=== PATIENT | female | born 2000 | race African-American/Black ===

== ENCOUNTER 2019-05-10 22:05 | Inpatient (IN) | payer OTHER ==
--- NOTE | 2019-05-10 22:12 | ED ---
Psychiatric Complaint - HPI Summary HPI Summary: This patient is a 18 year old F presenting to [facility] with a chief complaint of SI since earlier today. Pt states her friends asked police for a wellness check for the pt. Pt states she has tried to kill herself by cutting herself in the past. She is not allergic to any medications. Pt does not have any surgical history. The patient rates the pain 0/10 in severity. Symptoms aggravated by nothing. Symptoms alleviated by nothing. Pt smokes and occasionally drinks, but does not use recreational drugs. - History Of Current Complaint Chief Complaint: EDMentalHealth Time Seen by Provider: 05/10/19 22:07 Hx Obtained From: Patient Onset/Duration: Sudden Onset, Lasting Hours - since earlier today, Still Present Timing: Constant Severity Initially: Mild Severity Currently: Mild Aggravating Factor(s): Nothing Alleviating Factor(s): Nothing Has Suicidal: Reports: Thoughts, Has Prior Attempt(s) - Allergies/Home Medications Allergies/Adverse Reactions: Allergies Allergy/AdvReac Type Severity Reaction Status Date / Time No Known Allergies Allergy Verified 05/10/19 22:25 Home Medications: Home Medications Escitalopram Oxalate [Lexapro 10 mg] 10 mg PO DAILY 05/10/19 [History Confirmed 05/10/19] PMH/Surg Hx/FS Hx/Imm Hx Previously Healthy: No Sensory History: Denies: Hx Vision Problem, Hx Deafness EENT History: Denies: Hx Deafness, Hx Auditory Problems - Surgical History Surgical History: None Infectious Disease History: No Infectious Disease History: Denies: Traveled Outside the [place] in Last 30 Days - Family History Known Family History: Positive: None - Social History Alcohol Use: Occasionally Hx Substance Use: No Hx Tobacco Use: Yes Review of Systems Negative: Fever Psychological: Other - positive - SI All Other Systems Reviewed And Are Negative: Yes Physical Exam - Summary Physical Exam Summary: General: Well-developed, Well-nourished thin FEMALE. No acute distress. Soft- spoken. HEENT: Normocephalic, Atraumatic. Eyes: Conjuctiva normal, PERRL. Ears: TMs within normal limits. Nares: (-) discharge, (-) erythema. Oropharynx: Clear, mucous membranes moist, (-) exudates. Neck: Soft, FROM, (-) lymphadenopathy, (-) thyromegaly, (-) JVD. Cardiovascular: Normal sinus rhythm, (-) murmur. Lungs: Clear to auscultation bilaterally (-) wheezes, (-) rales, (-) rhonchi. Abdomen: Soft, non-tender, non-distended, (-) organomegaly, normal bowel sounds. Back: (-) CVA tenderness Extremities: No edema. Skin: Warm, dry, (-) rash. Neuro: Alert and oriented x3, no focal deficits. Psychiatric: Mood normal, affect normal. Good eye contact Triage Information Reviewed: Yes Vital Signs On Initial Exam: Initial Vitals Temp Pulse Resp BP Pulse Ox 98.7 F 83 16 144/102 98 05/10/19 22:08 05/10/19 22:08 05/10/19 22:08 05/10/19 22:08 05/10/19 22:08 Vital Signs Reviewed: Yes Procedures - Sedation Patient Received Moderate/Deep Sedation with Procedure: No Diagnostics - Vital Signs Vital Signs Temp Pulse Resp BP Pulse Ox 05/10/19 22:08 98.7 F 83 16 144/102 98 - Laboratory Result Diagrams: 05/10/19 22:20 05/10/19 22:20 Lab Statement: Any lab studies that have been ordered have been reviewed, and results considered in the medical decision making process. Course/Dx - Course Course Of Treatment: 18-year-old female with suicidal ideation. History of cutting. Workup essentially negative. Patient referred to mental health. Evaluation completed. Patient recommended for admission. Awaiting transfer to [facility]. - Differential Dx/Clinical Impression Provider Diagnosis: Depressive disorder Discharge ED - Sign-Out/Discharge Documenting (check all that apply): Patient Departure - admit - Discharge Plan Condition: Stable Disposition: ADMITTED TO OTHER HOSPITAL Referrals: No Primary Care Phys,NOPCP [Primary Care Provider] - - Billing Disposition and Condition Condition: STABLE Disposition: Admitted to Other Hospital - Attestation Statements Document Initiated by Scribe: Yes Documenting Scribe: Kenneth Simpson Provider For Whom Christopher is Documenting (Include Credential): Dr. Christina Triana MD Scribe Attestation: Kenneth Dai, scribed for Dr. Christina Triana MD on 05/11/19 at 0150. Scribe Documentation Reviewed: Yes Provider Attestation: The documentation as recorded by the Kenneth moctezuma accurately reflects the service I personally performed and the decisions made by me, Dr. Christina Triana MD Status of Scribe Document: Viewed
[2019-05-10 22:36] LABS: ABS Basophils 0.1 10^3/ul (0-0.2); ABS Eosinophils 0.1 10^3/ul (0-0.6); ABS Lymphocytes 1.3 10^3/ul (1.0-4.8); ABS Monocytes 0.3 10^3/ul (0-0.8); ABS Neutrophils 2.6 10^3/ul (1.5-7.7); Eosinophil % 1.8 %; Hematocrit 35 % (35-47); Hemoglobin 11.3 g/dL (12.0-16.0); Lymphocyte % 30.2 %; Mean Corpuscular HGB Conc 33 g/dL (31-36); Mean Corpuscular Hemoglobin 28 pg (27-31); Mean Corpuscular Volume 87 fL (80-97); Mean Platelet Volume 7.3 fL (7.4-10.4); Nucleated Red Blood Cells % 0.2; Platelet Count 326 10^3/uL (150-450); Red Blood Count 4.03 10^6 /uL (3.70-4.87); Red Cell Distribution Width 13 % (10-15); White Blood Count 4.4 10^3/uL (3.5-10.8)
[2019-05-10 22:44] LABS: ALT 11 U/L (7-52); AST 19 U/L (13-39); Albumin 4.2 g/dL (3.2-5.2); Albumin/Globulin Ratio 1.2 (1-3); Alkaline Phosphatase 54 U/L (34-104); Anion Gap 7 mmol/L (2-11); Blood Urea Nitrogen 12 mg/dL (6-24); CO2 Carbon Dioxide 26 mmol/L (22-32); Calcium 9.3 mg/dL (8.6-10.3); Chloride 106 mmol/L (101-111); EGFR African American 111.8 (>60); EGFR Non-African American 92.4 (>60); Globulin 3.6 g/dL (2-4); Glucose 89 mg/dL (70-100); Potassium 3.7 mmol/L (3.5-5.0); Sodium 139 mmol/L (135-145); Total Protein 7.8 g/dL (6.4-8.9)
[2019-05-10 22:46] LABS: Urine Appearance Cloudy; Urine Bilirubin Negative (Negative); Urine Blood 3+ (Negative); Urine Color Yellow; Urine Glucose Negative (Negative); Urine Ketones Negative (Negative); Urine Nitrite Negative (Negative); Urine Protein 1+(30 mg/dL) (Negative); Urine Specific Gravity 1.029 (1.010-1.030); Urine Urobilinogen Negative (Negative)
[2019-05-10 22:49] LABS: Urine Bacteria Absent (Absent); Urine Red Blood Cell 3+(>10/hpf) (Absent); Urine Squamous Epithelial Cell Present (Absent); Urine White Blood Cell Trace(0-5/hpf) (Absent)
[2019-05-10 22:51] LABS: HCG Pregnancy < 0.60 mIU/mL
[2019-05-10 22:53] LABS: Acetaminophen < 15 mcg/mL; Alcohol < 10 mg/dL (<10); Salicylate < 2.50 mg/dL (<30)
[2019-05-10 23:00] LABS: Urine Benzodiazepine Screen None Detected (None Detect); Urine Opiates Screen None Detected (None Detect)
[2019-05-10 23:08] LABS: TSH (Thyroid Stimulating Horm) 0.82 mcIU/mL (0.34-5.60)
--- NOTE | 2019-05-11 07:13 | ED ---
Progress - Progress Note Progress Note: This patient is 18 y/o F presenting to [facility] with CC of SI. Patient is a sign- out from Dr. Christina Triana to Dr. Robinson Da Silva on 05/11/19 at shift change at 0700 pending transfer to another psychiatric facility. Medications reviewed. Allergies noted. Course/Dx - Course Course Of Treatment: This patient is 18 y/o F presenting to [facility] with CC of SI. Patient is a sign-out from Dr. Christina Triana to Dr. Robinson Da Silva on at shift change at 0700 pending transfer to another psychiatric facility. Dr. Kerr, psychiatrist, re-evaluated the patient and admitted her to [facility] voluntarily with dx of unspecified depressive disorder. - Diagnoses Provider Diagnoses: Depressive disorder Discharge ED - Sign-Out/Discharge Documenting (check all that apply): Patient Departure - Admit, Receiving Sign- Out Receiving patient FROM: Christina Triana - Discharge Plan Condition: Stable [place]: [facility] [place] Billing Disposition and Condition Condition: STABLE Disposition: Psychiatric [place] [facility] [place] - Attestation Statements Document Initiated by Scribe: Yes Documenting Scribe: Donald Youngblood Provider For Whom Scribe is Documenting (Include Credential): Robinson Da Silva MD Scribe Attestation: Donald Dai, scribed for Robinson Da Silva MD on 05/11/19 at 1423. Scribe Documentation Reviewed: Yes Provider Attestation: The documentation as recorded by the Donald moctezuma accurately reflects the service I personally performed and the decisions made by me, Robinson Da Silva MD Status of Scribe Document: Viewed Procedures - Sedation Patient Received Moderate/Deep Sedation with Procedure: No
[2019-05-11] MEDS ORDERED: Escitalopram * 10 MG TAB PO ONE (07:44)
--- NOTE | 2019-05-11 07:46 | PN ---
ED Psychiatric Progress Note Date of Service: 05/10/19 Subjective: This is a 18 year-old F who is pending admission to [facility] / transfer to another psychiatric facility / discharge to home / or being observed secondary to SI, depression. Pt. examined in room 23 around 0730. She is sleeping comfortably. Objective: Vitals: Most recent vital signs documented below. General NAD Laboratory: Current laboratory results documented below. Assessment: Depression. Plan: Pending transfer/admission to [facility]. Morning medication ordered. Vital Signs Temp Pulse Resp BP Pulse Ox 98.7 F 83 16 144/102 98 05/10/19 22:08 05/10/19 22:08 05/10/19 22:08 05/10/19 22:08 05/10/19 22:08 Lab Results - Entire Visit 05/10/19 05/10/19 05/10/19 22:20 22:20 22:15 WBC 4.4 RBC 4.03 Hgb 11.3 L Hct 35 MCV 87 MCH 28 MCHC 33 RDW 13 Plt Count 326 MPV 7.3 L Neut % (Auto) 60.5 Lymph % (Auto) 30.2 [place] % (Auto) 6.3 Eos % (Auto) 1.8 Baso % (Auto) 1.2 Absolute Neuts (auto) 2.6 Absolute Lymphs (auto) 1.3 Absolute Monos (auto) 0.3 Absolute Eos (auto) 0.1 Absolute Basos (auto) 0.1 Absolute Nucleated RBC 0.0 Nucleated RBC % 0.2 Sodium 139 Potassium 3.7 Chloride 106 Carbon Dioxide 26 Anion Gap 7 BUN 12 Creatinine 0.80 Est GFR ( Amer) 111.8 Est GFR (Non-Af Amer) 92.4 BUN/Creatinine Ratio 15.0 Glucose 89 Calcium 9.3 Total Bilirubin 0.20 AST 19 ALT 11 Alkaline Phosphatase 54 Total Protein 7.8 Albumin 4.2 Globulin 3.6 Albumin/Globulin Ratio 1.2 TSH 0.82 Beta HCG, Quant < 0.60 Urine Color Urine Appearance Urine pH Ur Specific [place] Urine Protein Urine Ketones Urine Blood Urine Nitrate Urine Bilirubin Urine Urobilinogen Ur Leukocyte Esterase Urine WBC (Auto) Urine RBC (Auto) Ur Squamous Epith Cells Urine Bacteria Urine Glucose Salicylates < 2.50 Urine Opiates Screen None detected Acetaminophen < 15 Ur Barbiturates Screen None detected Ur Phencyclidine Scrn None detected Ur Amphetamines Screen None detected U Benzodiazepines Scrn None detected Urine Cocaine Screen None detected U Cannabinoids Screen None detected Serum Alcohol < 10 05/10/19 22:15 WBC RBC Hgb Hct MCV MCH MCHC RDW Plt Count MPV Neut % (Auto) Lymph % (Auto) [place] % (Auto) Eos % (Auto) Baso % (Auto) Absolute Neuts (auto) Absolute Lymphs (auto) Absolute Monos (auto) Absolute Eos (auto) Absolute Basos (auto) Absolute Nucleated RBC Nucleated RBC % Sodium Potassium Chloride Carbon Dioxide Anion Gap BUN Creatinine Est GFR ( Amer) Est GFR (Non-Af Amer) BUN/Creatinine Ratio Glucose Calcium Total Bilirubin AST ALT Alkaline Phosphatase Total Protein Albumin Globulin Albumin/Globulin Ratio TSH Beta HCG, Quant Urine Color Yellow Urine Appearance Cloudy Urine pH 5.0 Ur Specific [place] 1.029 Urine Protein 1+(30 mg/dl) A Urine Ketones Negative Urine Blood 3+ A Urine Nitrate Negative Urine Bilirubin Negative Urine Urobilinogen Negative Ur Leukocyte Esterase Negative Urine WBC (Auto) Trace(0-5/hpf) Urine RBC (Auto) 3+(>10/hpf) A Ur Squamous Epith Cells Present A Urine Bacteria Absent Urine Glucose Negative Salicylates Urine Opiates Screen Acetaminophen Ur Barbiturates Screen Ur Phencyclidine Scrn Ur Amphetamines Screen U Benzodiazepines Scrn Urine Cocaine Screen U Cannabinoids Screen Serum Alcohol
[2019-05-11] MEDS ORDERED: Al Hydrox/Mg Hydrox/Simet LIQ* 30 ML UDC PO PRN (09:52)
[2019-05-11] MEDS ORDERED: Acetaminophen TAB* 325 MG PO PRN (09:52)
[2019-05-11] MEDS ORDERED: hydrOXYzine HCL TAB* 50 MG PO PRN (09:57)
[2019-05-11] MEDS ORDERED: Escitalopram * 10 MG TAB PO SCH (10:00)
[2019-05-12] MEDS ORDERED: Influenza VAC *QUAD* 2019-20* 0.5 ML SYRINGE IM ONE (09:00)
[2019-05-12 09:01] LABS: HDL Cholesterol 44.9 mg/dL
[2019-05-12] MEDS: Escitalopram * 10 MG TAB PO SCH (11:49)
--- NOTE | 2019-05-12 19:47 | HP ---
HISTORY AND PHYSICAL: DATE OF ADMISSION: 05/11/19 SUPERVISING PSYCHIATRIST: Dr. Hua Kerr.* (DICTATED BY CECILY LORD NP) JUSTIFICATION FOR ADMISSION: The patient presented to the emergency department with thoughts of suicidal ideation and plan to overdose on medications. She merits hospitalization for immediate safety and stabilization. 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 The patient started seeing a therapist at [facility] this semester as well as started escitalopram in February. She reports that she has been feeling depressed for quite some time as far back as in her [employer] year of high school. She reports recent thoughts of suicide and . She endorses a sad mood, crying most of the time. She also endorses decreased energy and loss of appetite. She had thoughts of wanting to overdose on medicines or fall asleep and not wake up. She endorses hopelessness, helplessness, and worthlessness. She states that sometimes she eats very much but recently she has not had much of an appetite. One of her friends commented to staff that she has an eating disorder. The patient denies a history of restricting or calorie counting. She denies weight changes. She denies history of purging, over-exercising or laxatives. She does not know her weight when asked. The patient states that she has a regular sleep schedule. She reports difficulty initiating sleep. She states she endorses ruminating about stressors and trying not to think about them. She reports onset of cutting in January. She states that it is not really helpful and does not understand why she does it. She states that she does not feel particularly stressed, but identifies that she probably is. She reports her classes have not been going well this semester especially. She said she can usually keep her head above water, but is having a hard time maintaining this semester. She has an exam tomorrow. She needs to connect with [facility]. The patient denies obsessions or compulsions. She denies auditory or visual hallucinations. She denies previous suicide attempts. She states that she is "at odds" with a friend of hers, but does not want to talk about it. Collateral information obtained from her mother while the patient was in the emergency room. The patient has been having much difficulty with motivation, seems unhappy about everything. She minimizes symptoms not to worry her mother or others. Mom also reported that a friend of Rachael struggles with mental health and that Rachael may be mimicking some of the behaviors. When I spoke with the patient's mother today, Yosi Lauren, she reports that Rachael's biggest struggle right now is whether or not to go back to school. Mom states she feels like her mental health to come first or at least to be part of patient 's priorities. Mother was a social worker aide in [place] and is currently a baby nurse in [place]. Mom states that she and Rachael have always been close and continued to be so. Rachael is historically very motivated and usually challenges herself. She also as stated above minimizes her own stressors because she does not want to burden mom despite mom's support and telling her not to worry about such things such as money. It should be noted that her mother is planning to come to [place] on Friday and is wanting to be part of the discharge plan. PAST PSYCHIATRIC HISTORY: Other than starting to go to [facility] this semester and starting escitalopram, the patient denies psychiatric history. She denies a history of abuse or trauma. MEDICAL HISTORY: Healthy, no known surgeries. No known allergies. Last menstrual period 2 days ago. PRIMARY CARE PROVIDER: [facility]. CURRENT MEDICATIONS: Escitalopram 10 mg p.o. daily. FAMILY PSYCHIATRIC HISTORY: Cousin with alcohol abuse, depression and schizophrenia. No known suicides in the family. SOCIAL HISTORY: The patient was born in [place] and lived there until she was 9. Her mother and father have not contacted with each other in 17 years. The patient has an older brother and a younger brother from the same parents. The family moved to the [facility] in 2009 and to [place] in 2013. Rachael identifies as heterosexual and has not dated anyone. She identifies as Lutheran. She denies tobacco use. She reports occasional alcohol use, last time being this summer. She is a [employer] at [employer] studying biology. 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 REVIEW OF SYSTEMS: Constitutional: Negative. No fever, chills, or fatigue. ENT: Negative. Cardiovascular: Negative. Respiratory: Denies shortness of breath or cough. Genitourinary: Negative. Musculoskeletal: Negative. Neurological: Negative. PHYSICAL EXAMINATION GENERAL: The patient is tall, thin framed, well appearing. VITAL SIGNS: 6 feet, 140 pounds. T 98.4, P 81, respiration rate 16, O2 saturation 100%, BP 121/80. HEENT: Head and face: Normal head and face inspection. Eyes: Positive EOMI. PERRLA. Conjunctivae clear. Trachea midline. NECK: Supple. Full ROM. RESPIRATORY: Lung sounds clear to auscultation, breath sounds present. CARDIOVASCULAR: Heart RRR. Pulses are symmetrical in both upper and lower extremities. MUSCULOSKELETAL: Normal strength. ROM intact. NEUROLOGICAL: Normal sensory and motor intact. Alert and oriented x3 with normal gait. Cerebellar function intact. SKIN: Warm and dry. Color reflects adequate perfusion. LABORATORY DATA: CBC: Hemoglobin 11.3, MPV 7.3. Chemistries within normal limits. TSH normal at 0.82. Hemoglobin A1c and lipid panel within normal limits. HCG negative. Urinalysis showed 3+ blood and this was likely a contaminant specimen. Micro was negative. Toxicology negative for salicylates, acetaminophen or alcohol. Urine drug screen is negative. MENTAL STATUS EXAM: Rachael is a 18-year-old black female, thin framed, wearing her own long sleeve T-shirt and hospital scrubs. She sits with erect posture opposite interviewer. She is alert and oriented x3. She is cooperative and appears to be a good historian. Eye contact is good. Speech is soft, mumbled at times with Trinid[place] accent. Concentration poor. Memory 3/ 3. Mood is dysphoric with tearful affect. No abnormal psychomotor activity noted. Thought process is circumstantial, impoverished. Thought content is positive for suicidal ideation and passive wish. She denies auditory or visual hallucinations. There are no perceptual disturbances noted. Insight and judgment are good and that she is willing to call EMS and be hospitalized on a voluntary basis. Intellect is at least average and fund of knowledge is adequate. DIAGNOSIS: Major depressive disorder, recurrent, severe without psychotic features. ASSESSMENT: Rachael is a 18-year-old black female with no prior psychiatric hospitalizations who started counseling at [facility] at the beginning of this semester and later started Lexapro. She endorses classic symptoms of depression as well as difficulty with a friend group. She fortunately called EMS when she had thoughts of suicide and overdosing on medications. PLAN: The patient is admitted to adult behavioral services unit on involuntary status. Code status is full. She is placed on 15-minute checks for safety. She is encouraged to participate in supportive milieu, individual sessions with staff and psychoeducational groups. We will consider an increase in escitalopram. Estimated length of stay is 3 to 5 days. Discharge planning will include family involvement and outpatient providers. CECILY LORD NP [id number]/CPS #: [id number] BREANA
[2019-05-13] MEDS: Escitalopram * 10 MG TAB PO SCH (09:55)
--- NOTE | 2019-05-13 13:01 | PN ---
[facility]: Group Therapy Note - Service Type Service Type: [id number] Group Psychotherapy - Cognitive Behavioral Group Therapy ( CBT):Patient was attentive and participatory in CBT programming this morning, and remained in good behavioral control. Patient expressed positive insights regarding relevant treatment interventions and goals.
--- NOTE | 2019-05-13 14:54 | PN ---
Subjective - Subjective Date of Service: 05/13/19 Service Type: 00469 Hosp care 25 min moderate complexity Subjective: Patient is euthymic with bright affect. She is conversational and less guarded than yesterday. She reports some groups are helpful and identified learning about cognitive distortions. She denies suicidal ideation or passive wish. She states she is looking forward to her mother coming this weekend. She also discussed difficulty making decisions about taking a leave from [facility]. Firearms Instructor spoke with mother, Yosi and gave update on patient's presentation and discussed treatment planning. She reports she spoke with patient's counselor at [facility] who is aware of Rachael's ambivalence about taking a leave. Yosi states that they discussed how that would play out and is mindful that Rachael would be in a different year than her peers. She also stated that she may be able to set up an agreement with [facility] to take classes at a local university while on leave. Objective - General Observations Appearance: Well Groomed Stature: Thin Posture: WNL Eye Contact: Average Behavior/Activity: WNL - Interaction Observations Attitude Towards Examiner: Cooperative Stated Mood: Euthymic Affect: Full, Bright Speech Pattern/Tone: Clear, Appropriate, Normal Volume Thought Process: Coherent, Goal Directed Perception: WNL Thought Content: WNL Hallucination Type: Denies Delusion Type: Denies - Cognitive Function Orientation: A&O x 4 Level of Consciousness: Alert Cognition: WNL Estimated Intelligence: Normal Insight: WNL Judgment Within Normal Limits: Yes - Medication Compliance Cooperative with Inpatient Medication Regimen: Yes - Group Participation Participates in Group Activities: Yes Assessment - Assessment Merits Inpatient Hospitalization: For Immediate Safety, For Stabilization Inpatient DSM-V Dx: F33.1 Clinical Impression: First psychiatric hospitalization for 18yo black female in her e[employer]enia year at [employer] who presented to ED after her friends notified EMS due to suicidal ideation with a plan to overdose on medications. She merits hospitalization for immediate safety and stabilization. Plan - Plan Treatment Plan: Name: RACHAEL REINA Birthdate: 2000 [id number] continue acute intensive psychiatric treatment. may decrease to q30min and allow computer use and staff pass per RN discretion collaborate with [facility] crisis team continue escitalopram. add melatonin 3mg qhs prn insomnia. discharge to include mother and [facility] Continued Medication Management: Continue Outpt Medication Medications: Current Medications Acetaminophen (Tylenol Tab*) 650 mg PO Q4H PRN PRN Reason: for pain; or Temp >101 F Al Hydrox/Mg Hydrox/Simethicone (Maalox Plus*) 30 ml PO Q4H PRN PRN Reason: INDIGESTION Escitalopram Oxalate (Lexapro *) 10 mg PO DAILY NINFA Last Admin: 05/13/19 09:55 Dose: 10 mg Hydroxyzine HCl (Atarax Tab*) 50 mg PO Q6H PRN PRN Reason: anxiety - Discharge Plan Discharge Plan: Inpatient Hospitalization Outpatient Program: Counseling/Psych Services at [facility]
[2019-05-14 09:55] VITALS: BP 126/58
[2019-05-14] MEDS: Escitalopram * 10 MG TAB PO SCH (11:47)
== END 2019-05-14 13:38 | disposition home or self-care (01) | DRG 885 ==
LOC: ED 22:05 → BSU 05-11 09:52
PROVIDERS: ADMIT Psychiatry & Neurology Psychiatry; ATTEND Psychiatry & Neurology Psychiatry
DX: F33.1 Major depressive disorder, recurrent, moderate (principal); R45.851 Suicidal ideations; Z81.8 Family history of other mental and behavioral disorders; Z81.1 Family history of alcohol abuse and dependence; Z79.899 Other long term (current) drug therapy
CPT/HCPCS: 36415; 80053; 80061; 80307; 80320; 80329; 81003; 81015; 83036; 84443; 84702; 85025; 87086; 90686; 90853; 93005; 99222; 99232; 99238; 99284; A9270-GY; G0480